=== PATIENT | female | born 1990 | race Caucasian/White ===

== ENCOUNTER 2025-03-05 07:54 | Inpatient (IN) | payer OTHER, SELFPAY ==
[2025-03-05 08:14] VITALS: BP 122/76; BMI 24.7
[2025-03-05] MEDS: LR 1000 IV ×2 (08:30→10:50)
[2025-03-05 08:52] LABS: % Basophils 0.3 % (0-2); % Eosinophils 0.5 % (0-6); % Immature Granulocytes 1.5 % (0-0.5); % Lymphocytes 22.5 % (20.5-51.1); % Monocytes 4.8 % (1.7-9.3); % Neutrophils 70.4 % (42.2-75.2); Absolute Eosinophils 0.1 10^3/uL (0-0.7); Absolute Immature Granulocytes 0.2 10^3/uL (0-0.05); Absolute Lymphocytes 2.2 10^3/uL (1.2-3.4); Absolute Monocytes 0.5 10^3/uL (0.1-0.6); Hemoglobin 10.9 g/dL (12.0-16.0); Mean Corp Hgb Conc. 34.1 g/dL (33.0-37.0); Mean Corpuscular Volume 93.8 fL (81.0-99.0); Mean Platelet Volume 9.5 fL (7.4-10.4); Nucleated Red Blood Cells % 0 %; Platelet Count 234 10^3/uL (130-400); Red Blood Cell Count 3.41 10^6/uL (4.20-5.40); Red Cell Dist. Width 15.4 % (11.5-14.5)
[2025-03-05] MEDS: FENTANYL/BUPIVACAINE 100 EPIDURAL (12:24)
[2025-03-05] MEDS: SUBLIMAZE 100 MCG EPIDURAL (12:24)
[2025-03-05] MEDS: PITOCIN 30 UNITS/NSS 500 ML IV ×2 (14:38→16:05)
[2025-03-05] MEDS: HEMABATE 250 MCG IM (14:51)
[2025-03-06] MEDS: MOTRIN 600 MG PO ×3 (01:03→22:22)
[2025-03-06 05:18] LABS: Hematocrit 32.3 % (37.0-47.0); Hemoglobin 10.5 g/dL (12.0-16.0)
[2025-03-06] MEDS: SYNTHROID 125 MCG PO (06:43)
[2025-03-06] MEDS: PRENATAL PLUS 1 TABLET PO (16:22)
[2025-03-07] MEDS: SYNTHROID 125 MCG PO (06:01)
[2025-03-07] MEDS: PRENATAL PLUS 1 TABLET PO (08:20)
[2025-03-09 11:53] LABS: Syphilis/T. pallidum Ab Reflex Negative (Negative)
== END 2025-03-07 11:23 | disposition home or self-care (01) | DRG 807 ==
LOC: LDRP 07:54
PROVIDERS: ADMITTING PHYSICIAN Obstetrics & Gynecology; CONSULT PHYSICIAN Anesthesiology; CONSULT PHYSICIAN Nurse Anesthetist, Certified Registered; CONSULT PHYSICIAN Registered Nurse; CONSULT PHYSICIAN Specialist; CONSULT PHYSICIAN Student in an Organized Health Care Education/Training Program
PROC: 3E033VJ Introduction of Other Hormone into Peripheral Vein, Percutaneous Approach (ICD-10-PCS; 2025-03-05)
PROC: 10E0XZZ Delivery of Products of Conception, External Approach (ICD-10-PCS; 2025-03-05)
PROC: 0HQ9XZZ Repair Perineum Skin, External Approach (ICD-10-PCS; 2025-03-05)
DX: O70.0 First degree perineal laceration during delivery (principal); Z37.0 Single live birth; Z3A.40 40 weeks gestation of pregnancy
CPT/HCPCS: 36415; 85014; 85018; 85025; 86780; 86850; 86900; 86901